=== PATIENT | female | born 1950 | race Caucasian/White ===

== ENCOUNTER → 2017-05-16 | Outpatient (CLI) | payer OTHER ==
[~2017-05-16] MED LIST: ALLERCLEAR10 MG; ASPIRIN325; IBUPROFEN200 M2; OXYBUTYNIN 5 MG5 M1 PO
== END ==
LOC: M.RAD 09:51
DX: M19.011 Primary osteoarthritis, right shoulder (principal); M89.8X1 Other specified disorders of bone, shoulder; R07.9 Chest pain, unspecified

== ENCOUNTER 2018-01-27 16:42 | Emergency (ER) | payer OTHER ==
[~2018-01-27] VITALS: Ht 170.2 cm; Wt 65.8 kg
[2018-01-27 17:34] VITALS: BP 133/62
== END 2018-01-27 17:34 | disposition home or self-care (01) ==
LOC: M.ERS 16:42
DX: S50.811A Abrasion of right forearm, initial encounter (principal); Z88.6 Allergy status to analgesic agent; Z88.0 Allergy status to penicillin; Z88.5 Allergy status to narcotic agent; Z88.1 Allergy status to other antibiotic agents; Z90.710 Acquired absence of both cervix and uterus; V49.49XA Driver injured in collision with other motor vehicles in traffic accident, initial encounter; Y93.89 Activity, other specified; Y92.89 Other specified places as the place of occurrence of the external cause; Y99.8 Other external cause status

== ENCOUNTER → 2019-01-13 | Outpatient (CLI) | payer OTHER | LOC: M.RAD 07:29 | DX: Z12.31 Encounter for screening mammogram for malignant neoplasm of breast (principal) ==